=== PATIENT | female | born 1990 | race Caucasian/White ===

== ENCOUNTER 2016-07-12 13:08 | Emergency (ER) | payer SELFPAY ==
[2016-07-12 13:23] VITALS: BP 105/85
--- NOTE | 2016-07-12 13:27 | EDM.PDOC ---
ED HPI GI/ABDOMINAL - General Chief Complaint: Abdominal Pain Stated Complaint: BAD CRAMPS AB PAIN Time Seen by Provider: 07/12/16 13:27 Source of Information: Reports: Patient History Limitations: Reports: No limitations - History of Present Illness INITIAL COMMENTS - FREE TEXT/NARRATIVE: patient complains of generalized abdominal pain sudden onset along the umbilical region. Patient recently started her menses and does note menstrual pain. Patient has had procedures performed at outside facility. She has had abdominal hernia repair. Noted to have polycystic ovarian and uterine cysts with pain. Unsure if endometriosis. No recent fever or chills. No anorexia or vomiting. She denies right and left lower corner and pain. Timing/Duration: Reports: Day(s):, Constant, Getting worse Location: periumbilical Quality: Reports: ache, cramping Severity: moderate Associated Symptoms (-Female): Denies: constipation, diarrhea, nausea/vomiting Treatments DITCH DIGGER: Reports: Acetaminophen, NSAIDS - Related Data Allergies/ADRs: Allergies Allergy/AdvReac Type Severity Reaction Status Date / Time No Known Allergies Allergy Verified 07/12/16 13:34 ED ROS GENERAL - Review of Systems Review Of Systems: See Below HEENT: Reports: No symptoms Respiratory: Reports: No Symptoms Cardiovascular: Reports: No symptoms Endocrine: Reports: no symptoms GI/Abdominal: Reports: Abdominal pain. Denies: Constipation, Diarrhea, Nausea, Vomiting : Reports: pain. Denies: discharge, dysuria, flank pain, frequency, incontinence Musculoskeletal: Reports: no symptoms Skin: Reports: no symptoms Neurological: Reports: No Symptoms Psychiatric: Reports: No symptoms Hematologic/Lymphatic: Reports: anemia Immunologic: Reports: no symptoms ED EXAM, GI/ABD - Physical Exam Exam: See Below Exam Limited By: No limitations General Appearance: alert, WD/WN, no apparent distress GI/Abdominal: other (tenderness periumbilical. Umbilical scar is noted. No rebound. Pain with firm palpation.) Neurological: alert, oriented, CN II-XII intact Psychiatric: normal affect, normal mood Skin Exam: Warm, Dry, Intact Course - Vital Signs Last Recorded V/S: Last Vital Signs Temp 97.0 F 07/12/16 13:15 Pulse 119 H 07/12/16 13:15 Resp 20 07/12/16 13:15 BP 105/85 07/12/16 13:15 Pulse Ox 99 07/12/16 13:15 - Orders/Labs/Meds Meds: Medications Discontinued Medications Generic Name Dose Route Start Last Admin Trade Name Ro PRN Reason Stop Dose Admin Hydromorphone HCl 1 mg 07/12/16 13:34 07/12/16 13:41 Dilaudid IM 07/12/16 13:35 1 mg ONETIME ONE Administration Departure - Departure Time of Disposition: 14:44 Disposition: Home, Self-Care 01 Condition: good Clinical Impression: Dysmenorrhea Abdominal pain Qualifiers: Abdominal location: periumbilical Qualified Code(s): R10.33 - Periumbilical pain Referrals: PCP,None [Primary Care Provider] - Forms: ED Department Discharge Additional Instructions: Call to [facility] and ask to see who is taking new patients [facility] ([facility]). Neep follow up care for the polycystic ovarian problem.
[2016-07-12] MEDS ORDERED: HYDROmorphone 1 MG/ML Syringe IM ONE (13:34)
== END 2016-07-12 14:55 | disposition home or self-care (01) ==
LOC: DL.ED 13:08
DX: N94.6 Dysmenorrhea, unspecified (principal)
CPT/HCPCS: 96372; 99283; J1170

== ENCOUNTER 2016-09-09 15:15 | Emergency (ER) | payer MEDICAID ==
--- NOTE | 2016-09-09 15:36 | EDM.PDOC ---
ED HPI GENERAL MEDICAL PROBLEM - General Stated Complaint: RT SIDE CHEST PAINS, TINGLING,NUMB [id number] Time Seen by Provider: 09/09/16 15:30 Source of Information: Reports: Patient History Limitations: Reports: No Limitations - History of Present Illness INITIAL COMMENTS - FREE TEXT/NARRATIVE: This 26 yo female patient reports with right sided chest pain that radiates to her right arm. The patient reports her pain started yesterday at about 1530. The patient reports her pain "shoots" into her right upper arm with some tingling in her right hand. The patient reports her family has a cardiac history. The patient has called her family members and has had increased anxiety over the pain. The patient reports she came in to make sure this was nothing bad. Onset: Sudden Onset Date: 09/08/16 Onset Time: 15:30 Duration: Intermittent Location: Reports: Chest (right sided chest wall ) Quality: Reports: Ache, Sharp Severity: Moderate Improves with: Reports: None Worsens with: Reports: Breathing Associated Symptoms: Reports: Chest Pain (right sided chest wall) Treatments FISCAL ACCOUNTANT: Reports: NSAIDS (last dose was 1100 today) Right Chest Pain Score (Numeric/FACES): 8 - Related Data Allergies Allergy/AdvReac Type Severity Reaction Status Date / Time cyclobenzaprine Allergy Hives Verified 09/09/16 15:40 [From Flexeril] Home Meds: Home Meds LORazepam [Ativan] 1 - 2 tab PO DAILY PRN 09/09/16 [History] Labetalol [Normodyne] 100 mg PO BID 09/09/16 [History] metFORMIN [Glucophage] 500 mg PO DAILY 09/09/16 [History] Social & Family History - Tobacco Use Smoking Status *Q: Current Some Day Smoker Years of Tobacco use: 5 Packs/Tins Daily: 0.1 Used Tobacco, but Quit: No - Caffeine Use Caffeine Use: Reports: Coffee, Soda - Recreational Drug Use Recreational Drug Use: No ED ROS GENERAL - Review of Systems Review Of Systems: ROS reveals no pertinent complaints other than HPI. ED EXAM, GENERAL - Physical Exam Exam: See Below Exam Limited By: No Limitations General Appearance: Alert, WD/WN, Anxious, Moderate Distress, Obese Eye Exam: Bilateral Eye: EOMI, Normal Inspection, PERRL Ears: Normal External Exam, Normal Canal, Hearing Grossly Normal, Normal TMs Nose: Normal Inspection, Normal Mucosa, No Blood Throat/Mouth: Normal Inspection, Normal Lips, Normal Teeth, Normal Gums, Normal Oropharynx, Normal Voice, No Airway Compromise Head: Atraumatic, Normocephalic Neck: Normal Inspection, Supple, Non-Tender, Full Range of Motion Respiratory/Chest: No Respiratory Distress, Lungs Clear, Normal Breath Sounds, No Accessory Muscle Use, Other (right sided chest wall pain that was worse with palpation to the right anterior chest wall) Cardiovascular: Normal Peripheral Pulses, Regular Rate, Rhythm, No Edema, No Gallop, No JVD, No Murmur, No Rub GI/Abdominal: Normal Bowel Sounds, Soft, Non-Tender, No Organomegaly, No Distention, No Abnormal Bruit, No Mass, Other (obese) (Female) Exam: Deferred Rectal (Female) Exam: Deferred Back Exam: Normal Inspection, Full Range of Motion, NT Extremities: Normal Inspection, Normal Range of Motion, Non-Tender, Normal Capillary Refill, No Pedal Edema Neurological: Alert, Oriented, CN II-XII Intact, Normal Cognition, Normal Gait, Normal Reflexes, No Motor/Sensory Deficits Psychiatric: Normal Affect, Normal Mood Skin Exam: Warm, Dry, Intact, Normal Color, No Rash Lymphatic: No Adenopathy Course - Vital Signs Last Recorded V/S: Last Vital Signs Temp 35.9 C 09/09/16 15:32 Pulse 69 09/09/16 15:52 Resp 14 09/09/16 15:52 BP 108/72 09/09/16 15:52 Pulse Ox 98 09/09/16 15:52 - Orders/Labs/Meds Orders: Active Orders 24 hr Category Date Time Status EKG Documentation Completion [RC] URGENT Care 09/09/16 15:23 Active Labs: Laboratory Tests 09/09/16 09/09/16 Range/Units 15:35 15:35 WBC 11.0 H (5.0-10.0) 10^3/uL RBC 4.75 (4.2-5.4) 10^6/uL Hgb 13.8 (12.0-16.0) g/dL Hct 41.2 (37.0-47.0) % MCV 86.7 (80-100) fL MCH 29.1 (27.0-34.0) pg MCHC 33.5 (33.0-35.0) g/dL Plt Count 322 (150-450) 10^3/uL Neut % (Auto) 61.9 (42.2-75.2) % Lymph % (Auto) 26.6 (20.5-50.1) % [place] % (Auto) 9.6 H (2-8) % Eos % (Auto) 1.5 (1.0-3.0) % Baso % (Auto) 0.4 (0.0-1.0) % Sodium 140 (135-145) mmol/L Potassium 4.5 (3.6-5.0) mmol/L Chloride 103 (101-111) mmol/L Carbon Dioxide 28.0 (21.0-31.0) mmol/L Anion Gap 13.5 BUN 10 (7-18) mg/dL Creatinine 0.5 L (0.6-1.3) mg/dL Est Cr Clr Drug Dosing 133.67 mL/min Estimated GFR (MDRD) > 60 BUN/Creatinine Ratio 20.00 Glucose 82 (74-105) mg/dL Calcium 9.8 (8.4-10.2) mg/dl Total Bilirubin 0.7 (0.2-1.0) mg/dL AST 20 (10-42) IU/L ALT 25 (10-60) IU/L Alkaline Phosphatase 61 (42-121) IU/L Troponin I < 0.02 (0.00-0.02) ng/ml Total Protein 7.3 (6.7-8.2) g/dl Albumin 4.4 (3.2-5.5) g/dl Globulin 2.9 Albumin/Globulin Ratio 1.52 Departure - Departure Time of Disposition: 16:11 Disposition: Home, Self-Care 01 Condition: Fair Clinical Impression: Chest wall pain Instructions: Chest Wall Pain, [id number] Care Plan Goals: The patient was advised of the examination, lab, EKG and chest x-ray results during the visit. The patient was given an injection of Toradol (60 mg) while in the ED. The patient was discharged with a script for Toradol (10 mg) #20 to take 1 by mouth every 6 hours. If the patient has any additional symptoms or concerns, the patient should follow-up with her primary care facility or return to the emergency department. - My Orders Last 24 Hours: My Active Orders 09/09/16 15:23 EKG Documentation Completion [RC] URGENT - Assessment/Plan Last 24 Hours: My Active Orders 09/09/16 15:23 EKG Documentation Completion [RC] URGENT
--- NOTE | 2016-09-09 15:38 | CR ---
Clinical history: 26-year-old female right-sided chest pain. Interpretation: Negative exam. Upright AP portable chest film reasonable inspiratory effort obese female. External traffic monitor specialist leads. No rib fractures. Normal cardiac silhouette without alveolar edema or dependent effusion. No lung mass, hilar lymphadenopathy or focal lobar pneumonia. No atelectasis/collapse. No pneumothor ax.
[2016-09-09 15:52] VITALS: BP 108/72
[2016-09-09 16:02] LABS: CHLORIDE,CL 103 mmol/L (101-111); SODIUM,NA 140 mmol/L (135-145)
[2016-09-09] MEDS ORDERED: Ketorolac 30 MG/ML SDV IM ONE (16:11)
--- NOTE | 2016-10-01 11:18 | EKG ---
09/09/2016 - EVAN MONTAÑO I reviewed the EKG and agree with the machine's reading. [facility] /[id number]
== END 2016-09-09 16:37 | disposition home or self-care (01) ==
LOC: DL.ED 15:15
DX: R07.89 Other chest pain (principal); F17.210 Nicotine dependence, cigarettes, uncomplicated; Z79.899 Other long term (current) drug therapy; Z88.8 Allergy status to other drugs, medicaments and biological substances
CPT/HCPCS: 36415; 71010; 80053; 84484; 85025; 93005; 93010; 96372; 99283; 99285; J1885